=== PATIENT | male | born 1970 | race Caucasian/White ===

== ENCOUNTER 2018-01-18 13:52 | Emergency (ER) | payer SELFPAY ==
[~2018-01-18] VITALS: Ht 182.9 cm; Wt 123.6 kg
[2018-01-18] MEDS ORDERED: PERCOCET 5/31 TABLET PO (18:05)
[2018-01-18 18:54] VITALS: BP 130/80
== END 2018-01-18 19:01 | disposition home or self-care (01) ==
LOC: EME 13:52
DX: S82.841A Displaced bimalleolar fracture of right lower leg, initial encounter for closed fracture (principal); W01.0XXA Fall on same level from slipping, tripping and stumbling without subsequent striking against object, initial encounter; Y99.0 Civilian activity done for income or pay; I10 Essential (primary) hypertension
CPT/HCPCS: 73610; 73630; 99281; 99285; J2270; J3010; J7030